=== PATIENT | female | born 1960 | race Caucasian/White ===

== ENCOUNTER 2019-07-09 07:13 | Day surgery (SDC) | payer OTHER ==
[~2019-07-09 07:13] MED LIST: CALCIUM + D OR; CLARITIN-D1 TA2 PO; CRESTOR10 MG PO; DEPO-MEDROL80 MG/ML IM; FISH OIL1000 MG PO; FLEXERIL OR; FLEXERIL10 MG PO; FLONASE NASAL50 MCG; INFANRIX IM; LISINOPRIL10 MG PO; MEDDOSEPAK PO; MILK THISTLE500 M1 PO; MOTRIN800 MG/TAB PO; MULTI VIT PO; SM ASPIRIN81 M1 OR; TRAMADOL HCL50 MG PO; ULTRAM50 M1 PO; ZANAFLEX2 MG PO; ZOLOFT50 MG PO; ZYRTEC-D AL1 PO
[2019-07-09] MEDS ORDERED: XANAX0.25 MG PO (07:32)
[2019-07-09 09:20] VITALS: BP 115/64
== END 2019-07-09 09:41 | disposition home or self-care (01) | DRG 951 ==
LOC: ENDO 07:13
PROVIDERS: ATTEND Surgery
PROC: 0DBH8ZX Excision of Cecum, Via Natural or Artificial Opening Endoscopic, Diagnostic (ICD-10-PCS; principal; 2019-07-09)
PROC: 0DB78ZX Excision of Stomach, Pylorus, Via Natural or Artificial Opening Endoscopic, Diagnostic (ICD-10-PCS; 2019-07-09)
DX: Z12.11 Encounter for screening for malignant neoplasm of colon (principal); Q43.8 Other specified congenital malformations of intestine; K63.5 Polyp of colon; K57.30 Diverticulosis of large intestine without perforation or abscess without bleeding; K63.89 Other specified diseases of intestine; K21.9 Gastro-esophageal reflux disease without esophagitis; K29.70 Gastritis, unspecified, without bleeding; K44.9 Diaphragmatic hernia without obstruction or gangrene; I10 Essential (primary) hypertension; Z86.19 Personal history of other infectious and parasitic diseases